=== PATIENT | male | born 1995 | race Caucasian/White ===

== ENCOUNTER 2019-01-24 16:19 | Emergency (ER) | payer OTHER, MEDICAID ==
[~2019-01-24] VITALS: Ht 190.5 cm; Wt 70.3 kg
[~2019-01-24 16:19] MED LIST: ABILIFY 5 MG TAB5 MG; CELEXA 20 MG TA20 M1
[2019-01-24 16:23] VITALS: BP 130/86
[2019-01-24] MEDS ORDERED: AMOXICILLIN 50500 MG PO (16:38)
== END 2019-01-24 16:45 | disposition home or self-care (01) ==
LOC: M.ERS 16:19
DX: H66.91 Otitis media, unspecified, right ear (principal); F90.9 Attention-deficit hyperactivity disorder, unspecified type

== ENCOUNTER 2019-01-30 14:31 | Emergency (ER) | payer OTHER, MEDICAID ==
[~2019-01-30] VITALS: Ht 190.5 cm; Wt 70.3 kg
[~2019-01-30 14:31] MED LIST changes: +AMOXICILLIN 50500 MG PO
[2019-01-30 15:09] LABS: ABSOLUTE EOSINOPHILS 0.1 thou/uL (0.0-0.7); ABSOLUTE LYMPHOCYTES 2.3 thou/uL (0.8-5.3); ABSOLUTE MONOCYTES 0.6 thou/uL (0.0-1.2); ABSOLUTE NEUTROPHILS 4.7 thou/uL (1.6-8.1); BASOPHILS 0.3 %; EOSINOPHILS 0.8 %; HEMATOCRIT 41.7 % (42.0-52.0); HEMOGLOBIN 14.5 gm/dL (14.0-18.0); MCH 29.7 pg (26.0-34.0); MCHC 34.8 g/dL (28.0-37.0); MCV 85.3 fL (80.0-100.0); MONOCYTES 8.3 %; MPV 7.4 fl. (7.2-11.1); NUCLEATED RBCS 0 /100WBC; PLATELET COUNT* 220 thou/uL (150-400); POLYS 60.6 %; RBC 4.89 mil/uL (4.50-6.00); RDW-CV 13.1 % (10.5-14.5); WBC 7.7 thou/uL (4.0-11.0)
[2019-01-30 15:18] LABS: ANION GAP 7 mmol/L (7-16); BUN 14 mg/dL (7-18); CALCIUM 8.7 mg/dL (8.5-10.1); CHLORIDE 101 mmol/L (98-107); CO2 30 mmol/L (21-32); GLUCOSE 103 mg/dL (70-99); POTASSIUM 3.7 mmol/L (3.5-5.1); SODIUM 138 mmol/L (136-145)
[2019-01-30 15:28] LABS: ALBUMIN 3.8 g/dL (3.4-5.0); ALKALINE PHOSPHATASE 66 U/L (46-116); LIPASE 94 U/L (73-393); NT-PRO BRAIN NAT PEPTIDE 216 pg/mL (<300); SGOT 20 U/L (15-37); SGPT 25 U/L (30-65); TOTAL BILIRUBIN 0.6 mg/dL (<0.1-1.0); TOTAL PROTEIN 7.1 g/dL (6.4-8.2); TROPONIN-I LEVEL <0.06 ng/mL (<0.06)
[2019-01-30] MEDS ORDERED: TOBRAMYCIN SULFA5 ML OPHTHALMIC (15:36)
[2019-01-30] MEDS ORDERED: IBUPROFEN 800800 MG PO (15:36)
[2019-01-30 15:49] VITALS: BP 125/73
--- NOTE | 2019-02-01 13:10 | EKG ---
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
== END 2019-01-30 15:50 | disposition home or self-care (01) ==
LOC: M.ERS 14:31
PROVIDERS: Emergency Medicine
DX: R07.89 Other chest pain (principal); H10.9 Unspecified conjunctivitis; F90.9 Attention-deficit hyperactivity disorder, unspecified type

== ENCOUNTER 2019-09-21 07:20 | Emergency (ER) | payer OTHER, MEDICAID ==
[~2019-09-21] VITALS: Ht 190.5 cm; Wt 72.6 kg
[~2019-09-21 07:20] MED LIST changes: +IBUPROFEN 800800 MG PO; +TOBRAMYCIN SULFA5 ML OPHTHALMIC
[2019-09-21 08:17] LABS: ABSOLUTE EOSINOPHILS 0.1 thou/uL (0.0-0.7); ABSOLUTE LYMPHOCYTES 2.2 thou/uL (0.8-5.3); ABSOLUTE MONOCYTES 0.6 thou/uL (0.0-1.2); ABSOLUTE NEUTROPHILS 3.3 thou/uL (1.6-8.1); BASOPHILS 0.6 %; EOSINOPHILS 1.7 %; HEMATOCRIT 47.8 % (42.0-52.0); HEMOGLOBIN 16.9 gm/dL (14.0-18.0); LYMPHOCYTES 35.5 %; MCHC 35.3 g/dL (28.0-37.0); MCV 85.1 fL (80.0-100.0); MONOCYTES 8.9 %; MPV 7.3 fl. (7.2-11.1); NUCLEATED RBCS 0 /100WBC; PLATELET COUNT* 251 thou/uL (150-400); POLYS 53.3 %; RBC 5.61 mil/uL (4.50-6.00); RDW-CV 12.7 % (10.5-14.5); WBC 6.3 thou/uL (4.0-11.0)
[2019-09-21 08:25] LABS: CALCIUM 8.7 mg/dL (8.5-10.1); POTASSIUM 4.5 mmol/L (3.5-5.1); PROTIME 10.7 Seconds (9.20-11.50)
[2019-09-21 08:29] LABS: ALBUMIN 4.5 g/dL (3.4-5.0); TOTAL BILIRUBIN 0.4 mg/dL (<0.1-1.0)
[2019-09-21 08:35] LABS: INFLUENZA A ANTIGEN Negative (Negative); INFLUENZA B ANTIGEN Negative (Negative)
[2019-09-21 09:16] VITALS: BP 123/77
== END 2019-09-21 09:19 | disposition home or self-care (01) ==
LOC: M.ERS 07:20
PROVIDERS: Family Medicine
DX: B34.9 Viral infection, unspecified (principal)

== ENCOUNTER 2020-03-20 12:37 | Emergency (ER) | payer OTHER, MEDICAID ==
[~2020-03-20] VITALS: Ht 190.5 cm; Wt 72.6 kg
[2020-03-20] MEDS ORDERED: CIPROFLOXIN HC2.5 M1 OPHTHALMIC (13:27)
[2020-03-20 13:44] VITALS: BP 116/77
== END 2020-03-20 13:44 | disposition home or self-care (01) ==
LOC: M.ERS 12:37
DX: H10.9 Unspecified conjunctivitis (principal)

== ENCOUNTER 2020-12-21 18:07 | Emergency (ER) | payer OTHER, MEDICAID ==
[~2020-12-21] VITALS: Ht 190.5 cm; Wt 74.8 kg
[~2020-12-21 18:07] MED LIST changes: +CIPROFLOXIN HC2.5 M1 OPHTHALMIC
[2020-12-21] MEDS ORDERED: PREDNISONE 20 M20 MG PO (19:05)
[2020-12-21] MEDS ORDERED: ZPAK PO (19:05)
[2020-12-21] MEDS ORDERED: APAP W/CODEINE1 TA2 PO (19:05)
[2020-12-21] MEDS ORDERED: TESSALON PERLE100 MG PO (19:07)
[2020-12-21 19:18] VITALS: BP 122/69
== END 2020-12-21 19:18 | disposition home or self-care (01) ==
LOC: M.ERS 18:07
DX: U07.1 COVID-19 (principal)

== ENCOUNTER 2020-12-30 14:34 | Emergency (ER) | payer OTHER, MEDICAID ==
[~2020-12-30] VITALS: Ht 160 cm; Wt 74.8 kg
[~2020-12-30 14:34] MED LIST changes: +APAP W/CODEINE1 TA2 PO; +PREDNISONE 20 M20 MG PO; +TESSALON PERLE100 MG PO; +ZPAK PO
[2020-12-30 15:29] VITALS: BP 146/86
== END 2020-12-30 15:30 | disposition home or self-care (01) ==
LOC: M.ERS 14:34
DX: U07.1 COVID-19 (principal)

== ENCOUNTER 2021-03-13 12:34 | Emergency (ER) | payer OTHER, MEDICAID ==
[~2021-03-13] VITALS: Ht 190.5 cm; Wt 74.8 kg
[2021-03-13] MEDS ORDERED: ZOFRAN ODT4 MG PO (13:48)
[2021-03-13 14:03] VITALS: BP 115/60
== END 2021-03-13 14:04 | disposition home or self-care (01) ==
LOC: M.ERS 12:34
DX: J02.9 Acute pharyngitis, unspecified (principal); Z20.822 Contact with and (suspected) exposure to COVID-19; Z86.16 Personal history of COVID-19